=== PATIENT | male | born 1955 | race Caucasian/White ===

== ENCOUNTER → 2017-08-08 | Outpatient (CLI) | payer BC | END | disposition home or self-care (01) | LOC: KCIC CT 12:14 | DX: J44.9 Chronic obstructive pulmonary disease, unspecified (principal); K80.20 Calculus of gallbladder without cholecystitis without obstruction; R91.1 Solitary pulmonary nodule | CPT/HCPCS: 71250 ==

== ENCOUNTER → 2019-06-09 | Outpatient (CLI) | payer BC, MEDICARE ==
[2015-06-16 13:45] VITALS: BP 130/70
[~2019-06-09] MED LIST: FLUT1DIS IH; IBUP100O25 PO; VENTOLIN HFA18 GM INH
--- NOTE | 2019-06-09 13:59 | KCIC ---
CT chest without contrast dated 06/09/2019. Comparison made to 08/08/2017. Clinical indication: Follow-up lung nodule. TECHNIQUE: Contiguous axial imaging the chest performed without the administration of IV contrast. One or more of the following individualized dose reduction techniques were utilized for this examination: 1. Automated exposure control 2. Adjustment of the mA and/or kV according to patient size 3. Use of iterative reconstruction technique FINDINGS: Heart size within normal limits. Scattered coronary calcifications. Mild ectasia of the ascending thoracic aorta measuring 4.1 cm is transverse. No mediastinal, hilar or axillary lymphadenopathy. No pericardial effusion. Thyroid gland is unremarkable. Central airways are patent. Mild diffuse bronchial wall thickening. A small noncalcified pulmonary nodule in the right lower lobe on image 157 measures 5 mm maximum dimension, unchanged. Tiny subpleural nodule in the right upper lobe laterally on image 46 measures 2 mm, stable. Small subpleural nodule in the left upper lobe anteriorly on image 64 measures 3 mm, unchanged. No new pulmonary nodule or mass. No consolidation or pleural effusion. Limited images of the upper abdomen show a 3.5 cm low-density focus at the upper pole left kidney with Hounsfield value of 8, unchanged. No acute bony abnormality. Mild multilevel spondylosis. IMPRESSION: 1. No significant interval change in small bilateral pulmonary nodules, nonspecific. 2. Mild ectasia of the ascending thoracic aorta. 3. Indeterminate low-density focus at the upper pole left kidney, stable from prior exam, likely cyst. Electronically signed by: Talib Iglesias MD (06/09/2019 1:56 PM) [id number]
== END | disposition home or self-care (01) ==
LOC: KCIC CT 13:11
PROVIDERS: ATTEND Internal Medicine Critical Care Medicine
DX: R91.8 Other nonspecific abnormal finding of lung field (principal); I77.810 Thoracic aortic ectasia; M47.814 Spondylosis without myelopathy or radiculopathy, thoracic region; I25.10 Atherosclerotic heart disease of native coronary artery without angina pectoris
CPT/HCPCS: 71250